=== PATIENT | male | born 2005 | race Caucasian/White ===

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

== ENCOUNTER 2023-10-07 15:18 | Emergency (ER) | payer OTHER ==
[~2023-10-07] VITALS: Ht 170.2 cm; Wt 91.4 kg
[~2023-10-07 15:18] MED LIST changes: +ALBU8.5H; +FLUO-290; +GUAN1TAB17; +OMEP-173
[2023-10-07] MEDS ORDERED: VENTAER PO (18:42)
[2023-10-07] MEDS ORDERED: METH36TA6 PO (18:42)
[2023-10-07] MEDS: LIDOCAINE 1% MDV 20ML VIAL SC ONE (19:05)
[2023-10-07] MEDS ORDERED: BACT800T5 PO (20:29)
[2023-10-07] MEDS: IBUPROFEN 800 MG TAB PO ONE (20:29)
[2023-10-07 20:34] VITALS: BP 134/66; TEMP 97.9; O2SAT 100
== END 2023-10-07 20:48 | disposition home or self-care (01) ==
LOC: EDBD 15:18 → M ED 15:18
DX: L05.01 Pilonidal cyst with abscess (principal); K21.9 Gastro-esophageal reflux disease without esophagitis; F41.9 Anxiety disorder, unspecified; F90.9 Attention-deficit hyperactivity disorder, unspecified type; Z79.52 Long term (current) use of systemic steroids; Z79.2 Long term (current) use of antibiotics; Z79.899 Other long term (current) drug therapy

== ENCOUNTER 2024-04-12 10:14 | Emergency (ER) | payer OTHER ==
[~2024-04-12] VITALS: Ht 185.4 cm; Wt 93.8 kg
[~2024-04-12 10:14] MED LIST changes: +BACT800T5 PO; +METH36TA6 PO; +VENTAER PO
[2024-04-12] MEDS: ACETAMINOPHEN 325 MG TAB PO ONE (13:26)
[2024-04-12] MEDS: LIDOCAINE W/EPINEPHRINE 1% 20ML VIAL SC ONE (14:05)
[2024-04-12] MEDS ORDERED: AMOX875T2 PO (14:31)
[2024-04-12 14:43] VITALS: BP 127/59; TEMP 97.5; O2SAT 100
== END 2024-04-12 14:57 | disposition home or self-care (01) ==
LOC: EDBD 10:14 → M ED 10:14
DX: L05.01 Pilonidal cyst with abscess (principal); S60.221A Contusion of right hand, initial encounter; W22.8XXA Striking against or struck by other objects, initial encounter; Y93.89 Activity, other specified; Y99.9 Unspecified external cause status; Y92.9 Unspecified place or not applicable; K21.9 Gastro-esophageal reflux disease without esophagitis; F32.A Depression, unspecified; F41.9 Anxiety disorder, unspecified; F90.9 Attention-deficit hyperactivity disorder, unspecified type; Z79.899 Other long term (current) drug therapy